=== PATIENT | female | born 1985 | race Two or more races ===

== ENCOUNTER → 2025-03-14 | Day surgery (SDC) | payer MEDICAID ==
[2025-03-09 10:29] LABS: Hematocrit 39.2 % (36.0-46.0); Hemoglobin 13.0 g/dL (12.2-16.2); Mean Corpuscular Volume 75.3 fL (80.0-100.0)
[2025-03-09 10:31] LABS: Mean Corpuscular Hemoglobin 25.1 pg (28.0-32.0); Nucleated Red Blood Cells % 0.0 %
[2025-03-09 10:41] LABS: INR 1.0 (0.9-1.15); Partial Thromboplastin Time 33.8 SEC (24.5-34.5); Prothrombin Time 10.6 sec (9.3-11.8)
[2025-03-09 11:13] LABS: Alanine Aminotransferase 20 U/L (7-40); Albumin 4.7 g/dL (3.2-4.8); Alkaline Phosphatase 95 U/L (46-116); Anion Gap 6 (5-15); BUN/Creatinine Ratio 12.7 (10.0-20.0); Blood Urea Nitrogen 10 mg/dL (9-23); Calcium 9.7 mg/dL (8.7-10.4); Carbon Dioxide 29 mmol/L (20-31); Chloride 105 mmol/L (98-107); Glucose 92 mg/dL (74-106); Potassium 3.8 mmol/L (3.5-5.1); Sodium 140 mmol/L (136-145); Total Protein 7.6 g/dL (5.7-8.2)
[2025-03-09 11:14] LABS: Bilirubin, Total 0.3 mg/dL (0.2-1.0)
[2025-03-09 11:53] LABS: Urine Protein, UAD Negative (Negative)
[~2025-03-14] VITALS: Ht 175.3 cm; Wt 140.6 kg
[~2025-03-14] MED LIST: FER325T PO; KETAMINE 50mg/ML 1ml syringe ONE; LIDOCAINE 1% INJ PF 5ML AMP ONE; LOSA-534 PO; MIDAZOLAM HCL 2MG/2ML 2ml VIAL (1mg/ml) ONE; MULT-1054 PO; OMEP20TA PO; ONDANSETRON HCL 4 MG/2 ML VIAL ONE; PROPOFOL 10 MG/ML 20 ML IV ONE; SEMA0.5I SC; SODIUM CHLORIDE LOCK 10 ML ONE; fentaNYL CITRATE 100 MCG/2 ML VL ONE
[2025-03-14 11:36] VITALS: PULSE 90; RESP 20; O2SAT 95
[2025-03-14 11:46] VITALS: PULSE 86; RESP 20; O2SAT 96
--- NOTE | 2025-03-14 11:47 | DVHOP2 ---
Operative Report DATE OF OPERATION: 03/14/25 PROCEDURE: Colonoscopy with hot snare polypectomy. PREOPERATIVE INDICATION: The patient is a 40 -year-old female undergoing colonoscopy for colon cancer screening and evaluation of rectal bleeding POSTOPERATIVE DIAGNOSES: 1. 1.5-2 cm benign-appearing sigmoid polyp on a short stalk at 20 cm above the anal verge were seen and removed by hot snare polypectomy and the specimens were retrieved 2. 1+ internal external hemorrhoids otherwise normal examination up to the cecum and terminal ileum PROCEDURE PERFORMED BY: Kamilah Villela M.D. SCOPE: Olympus videocolonoscope. ASA CLASS: 2. PREOPERATIVE MEDICATIONS: Mac Dr. Angelo lemons PROCEDURE IN DETAIL: After obtaining an informed consent, the patient was placed on left lateral decubitus position. She was then sedated with the above medications. A rectal examination was performed that was normal. The colonoscope was then passed through the anus into the rectosigmoid and through the descending, transverse, and ascending colon up to the cecum with visualization of the appendiceal orifice, base of the cecum and the ileocecal valve. The colonoscope was then withdrawn. The distal 5-10 cm of the terminal ileum were normal No masses or colitis were seen. There was no clear-cut diverticular disease. Patient had a good bowel prep and there was no fresh or old blood in the GI tract Patient did have a 1.5-2 cm benign-appearing sigmoid polyp on a short stalk. This was removed completely via hot snare polypectomy On retroflexion and straight on view she had 1+ internal hemorrhoids were slightly inflamed and 1+ external hemorrhoids The patient tolerated the procedure well without difficulty. WITHDRAWAL TIME: 9 minutes QUALITY OF THE PREP: [place] Bowel Prep score: 9. COMPLICATIONS : None SPECIMENS: Sigmoid colon polyp DISPOSITION: Stable D/C to home PLAN: 1. Repeat colonoscopy base on biopsy result likely in 3-5 years 2. Resume GI soft diet advance as tolerated 3. Local anorectal hemorrhoidal care 4. Outpatient follow up with me in 4-6 weeks to review results and discuss further management KAMILAH VILLELA MD Mar 14, 2025 11:47
[2025-03-14 11:51] VITALS: BP 153/100; PULSE 81; RESP 14; O2SAT 95
== END | disposition home or self-care (01) ==
LOC: GI 09:54
PROVIDERS: ATTEND Internal Medicine Gastroenterology
DX: K92.1 Melena (principal); D12.5 Benign neoplasm of sigmoid colon; K63.5 Polyp of colon; K64.8 Other hemorrhoids; K64.4 Residual hemorrhoidal skin tags; I10 Essential (primary) hypertension; E11.9 Type 2 diabetes mellitus without complications; E78.5 Hyperlipidemia, unspecified; M19.90 Unspecified osteoarthritis, unspecified site; E66.01 Morbid (severe) obesity due to excess calories; Z68.42 Body mass index [BMI] 45.0-49.9, adult; Z79.899 Other long term (current) drug therapy; Z86.2 Personal history of diseases of the blood and blood-forming organs and certain disorders involving the immune mechanism; Z98.891 History of uterine scar from previous surgery
CPT/HCPCS: 36415; 45385; 80053; 81001; 84702; 85025; 85610; 85730; 88305; J2250; J2405; J2704; J3010; J7030